=== PATIENT | male | born 1950 | race Hispanic/Latino ===

== ENCOUNTER 2019-11-27 22:44 | Emergency (ER) | payer MEDICARE ==
[2019-11-27] MEDS ORDERED: DIPHtheria,PERTUSSIS(ACELL),TETANUS VACCINE/PF 0.5 ML VIAL IM ONE (23:43)
--- NOTE | 2019-11-27 23:53 | Emergency Department Report ---
<JEANINE GOMEZ - Last Filed: 11/28/19 02:17> ED Fall HPI - General Chief Complaint: Fall Stated Complaint: ETOH/FALL/LACERATION TO HEAD Time Seen by Provider: 11/27/19 23:43 Source: EMS Mode of arrival: Stretcher - History of Present Illness Initial Comments: Patient is a 69-year-old male presents emergency room after a trip and fall that occurred just prior to arrival. Patient states that he hit the back of his head against the concrete. He states he does believe that he passed out for a second. He denies any neck pain, back pain, numbness, weakness, bowel or bladder incontinence, any other injury. He is unsure of his last tetanus immunization. No allergies to medications. - Related Data Allergies Allergy/AdvReac Type Severity Reaction Status Date / Time No Known Allergies Allergy Unverified 11/27/19 23:27 ED Review of Systems Comment: All other systems reviewed and negative ED Past Medical Hx - Past Medical History Previous Medical History?: Yes Hx Seizures: Yes Additional medical history: knee tore up - Surgical History Past Surgical History?: Yes Additional Surgical History: hernia - Social History Smoking Status: Current Every Day Smoker Substance Use Type: None ED Physical Exam - General Limitations: Physical Limitation General appearance: alert, other (appears to be intoxicated) - Head Head exam: Present: other (there are two lacerations present to the posterior scalp, 2 cm each, no active bleeding, no muscle involvement, no foreign body) - Eye Eye exam: Present: normal appearance, PERRL, EOMI. Absent: periorbital swelling, periorbital tenderness Pupils: Present: normal accommodation - ENT ENT exam: Present: mucous membranes moist - Neck Neck exam: Present: normal inspection, full ROM. Absent: tenderness - Respiratory Respiratory exam: Present: normal lung sounds bilaterally. Absent: respiratory distress, wheezes, rales, rhonchi, stridor, chest wall tenderness, accessory muscle use, decreased breath sounds, prolonged expiratory - Cardiovascular Cardiovascular Exam: Present: regular rate, normal rhythm, normal heart sounds. Absent: systolic murmur, diastolic murmur, rubs, gallop - Neurological Exam Neurological exam: Present: alert, oriented X3, CN II-XII intact, normal gait. Absent: motor sensory deficit - Psychiatric Psychiatric exam: Present: normal affect, normal mood - Skin Skin exam: Present: warm, dry - Laceration /Wound Repair Posterior Occipital Wound Location: head (posterior scalp) Wound Length (cm): 2 (two lacerations) Wound's Depth, Shape: superficial Wound Explored: clean Irrigated w/ Saline (ccs): 200 Betadine Prep?: Yes Volume Anesthetic (ccs): 0 Wound Debrided: moderate Number of Sutures: 7 (eagle) Sterile Dressing Applied?: Yes Progress: There are 2 lacerations present, wounds irrigated with saline and thoroughly scrubbed with Betadine, 7 eagle placed with good skin approximation, bleeding controlled, no complications, sterile dressing applied ED Medical Decision Making - Lab Data Result diagrams: 11/28/19 00:21 11/28/19 00:21 Lab Results 11/28/19 11/28/19 11/28/19 Range/Units 00:21 00:21 00:21 WBC 7.1 (4.5-11.0) K/mm3 RBC 5.08 H (3.65-5.03) M/mm3 Hgb 16.5 H (11.8-15.2) gm/dl Hct 47.8 H (35.5-45.6) % MCV 94 (84-94) fl MCH 33 H (28-32) pg MCHC 35 H (32-34) % RDW 14.0 (13.2-15.2) % Plt Count 89 L (140-440) K/mm3 Lymph % (Auto) 45.6 H (13.4-35.0) % Gila % (Auto) 6.7 (0.0-7.3) % Eos % (Auto) 2.6 (0.0-4.3) % Baso % (Auto) 2.1 H (0.0-1.8) % Lymph # 3.2 (1.2-5.4) K/mm3 Gila # 0.5 (0.0-0.8) K/mm3 Eos # 0.2 (0.0-0.4) K/mm3 Baso # 0.2 H (0.0-0.1) K/mm3 Seg Neutrophils % 43.0 (40.0-70.0) % Seg Neutrophils # 3.1 (1.8-7.7) K/mm3 PT 13.5 (12.2-14.9) Sec. INR 1.02 (0.87-1.13) APTT 37.0 H (24.2-36.6) Sec. Sodium 139 (137-145) mmol/L Potassium 4.1 (3.6-5.0) mmol/L Chloride 96.8 L (98-107) mmol/L Carbon Dioxide 26 (22-30) mmol/L Anion Gap 20 mmol/L BUN 14 (9-20) mg/dL Creatinine 1.0 (0.8-1.3) mg/dL Estimated GFR > 60 ml/min BUN/Creatinine Ratio 14 % Glucose 95 (75-100) mg/dL Calcium 9.0 (8.4-10.2) mg/dL Total Bilirubin 0.60 (0.1-1.2) mg/dL AST 50 H (5-40) units/L ALT 23 (7-56) units/L Alkaline Phosphatase 107 (35-129) units/L Total Protein 8.6 H (6.3-8.2) g/dL Albumin 4.7 (3.9-5) g/dL Albumin/Globulin Ratio 1.2 % Plasma/Serum Alcohol (0-0.07) % 08// Range/Units 00:21 WBC (4.5-11.0) K/mm3 RBC (3.65-5.03) M/mm3 Hgb (11.8-15.2) gm/dl Hct (35.5-45.6) % MCV (84-94) fl MCH (28-32) pg MCHC (32-34) % RDW (13.2-15.2) % Plt Count (140-440) K/mm3 Lymph % (Auto) (13.4-35.0) % Gila % (Auto) (0.0-7.3) % Eos % (Auto) (0.0-4.3) % Baso % (Auto) (0.0-1.8) % Lymph # (1.2-5.4) K/mm3 Gila # (0.0-0.8) K/mm3 Eos # (0.0-0.4) K/mm3 Baso # (0.0-0.1) K/mm3 Seg Neutrophils % (40.0-70.0) % Seg Neutrophils # (1.8-7.7) K/mm3 PT (12.2-14.9) Sec. INR (0.87-1.13) APTT (24.2-36.6) Sec. Sodium (137-145) mmol/L Potassium (3.6-5.0) mmol/L Chloride (98-107) mmol/L Carbon Dioxide (22-30) mmol/L Anion Gap mmol/L BUN (9-20) mg/dL Creatinine (0.8-1.3) mg/dL Estimated GFR ml/min BUN/Creatinine Ratio % Glucose (75-100) mg/dL Calcium (8.4-10.2) mg/dL Total Bilirubin (0.1-1.2) mg/dL AST (5-40) units/L ALT (7-56) units/L Alkaline Phosphatase (35-129) units/L Total Protein (6.3-8.2) g/dL Albumin (3.9-5) g/dL Albumin/Globulin Ratio % Plasma/Serum Alcohol 0.33 H (0-0.07) % - Radiology Data Radiology results: report reviewed CT HEAD WITHOUT CONTRAST INDICATION: Status-Post fall, hit head, syncope. E.T.O.H. TECHNIQUE: All CT scans at this location are performed using CT dose reduction for ALARA by means of automated exposure control. COMPARISON: None available. FINDINGS: BRAIN: No hemorrhage or mass effect are seen. No evidence of acute infarction is noted. White matter microvascular changes are seen. Mild ventricular prominence probably is on the basis of central atrophy. ORBITS: Normal as visualized. SOFT TISSUES OF HEAD: Scalp hematoma/edema is seen mildly in the right posterior parietal region. CALVARIUM: Normal. VISUALIZED PARANASAL SINUSES AND MASTOID AIR CELLS: Clear. ADDITIONAL FINDINGS: None. IMPRESSION: No acute intracranial abnormality. CT CERVICAL SPINE WITHOUT CONTRAST INDICATION: Status-Post fall, hit head, syncope. E.T.O.H. TECHNIQUE: All CT scans at this location are performed using CT dose reduction for ALARA by means of automated exposure control. Axial CT images were obtained through the cervical spine. Sagittal and coronal reformatted images were produced. COMPARISON: None available. Cervical spine findings: Moderate degenerative changes are seen with moderate disc space narrowing at C4-5, C5-6, and C6-7. Slight retrolisthesis is noted at C5-6. Anterior and posterior osteophytes are noted at the lower 3 levels and at C7-T1 there is mild posterior osteophyte formation. Osteophytes are more prominent to the right than left posteriorly. Mild disc space narrowing is noted at C3-4. No fractures are seen. Bilateral mild facet arthritic changes are noted. C1 to arthritic changes are moderately prominent. No disc herniation is obvious. A moderate focal area of sclerosis is seen in the C7 vertebral body which is not entirely related to the disc space. Sclerosis and other areas appears more displaced related. Additional findings: Mild chronic changes are seen in the lung apices. IMPRESSION: 1. No acute abnormalities are seen 2. Moderate cervical degenerative changes 3. Sclerosis in the C7 vertebral body. In a male of this age the possibility of prostate carcinoma should be considered and clinical correlation is suggested. Signer Name: John Epperson MD Signed: 11/28/2019 1:12 AM Workstation Name: [id number] Transcribed By: GJ Dictated By: John Epperson MD Electronically Authenticated By: John Epperson MD Signed Date/Time: 11/28/19111 DD/ 1 TD/TT: - Medical Decision Making Patient is a 69-year-old male presents emergency room after a trip and fall that occurred just prior to arrival. Patient states that he hit the back of his head against the concrete. He states he does believe that he passed out for a second. He denies any neck pain, back pain, numbness, weakness, bowel or bladder incontinence, any other injury. He is unsure of his last tetanus immunization. No allergies to medications. vss. on exam: there are two lacerations present to the posterior scalp, 2 cm each, no active bleeding, no muscle involvement, no foreign body, patient appears to be intoxicated. Lacerations repaired per procedure note with eagle. Labs significant for blood alcohol level of 0.33. CT cervical spine: 1. No acute abnormalities are seen 2. Moderate cervical degenerative changes 3. Sclerosis in the C7 vertebral body. In a male of this age the possibility of prostate carcinoma should be considered and clinical correlation is suggested. ct head: No acute intracranial abnormality. Patient will be signed out to Dr. Dunham, CHAR attending pending clinical sobriety ED Disposition Clinical Impression: Intoxication, Abnormal finding on CT scan Head injury Qualifiers: Encounter type: initial encounter Qualified Code(s): S09.90XA - Unspecified injury of head, initial encounter Scalp laceration Qualifiers: Encounter type: initial encounter Qualified Code(s): S01.01XA - Laceration without foreign body of scalp, initial encounter Disposition: DC-01 TO HOME OR SELFCARE Is pt being admited?: No Does the pt Need Aspirin: No Condition: Stable Instructions: Minor Head Injury (ED), Alcohol Intoxication (ED), Staple Care (ED) Additional Instructions: Please keep area clean, dry, covered. May wash with soap and water immediately dry. No hot tub, no pool, no soaking water. [place] need to be removed within 7 days. Follow-up with a primary care doctor. Please stop alcohol use. There is abnormality on the CT scan of your cervical spine which shows a small area of sclerosis which could be a sign of cancer and you need to follow-up with your primary care doctor for this, I have given you your CT report, please take this with you. Return to the emergency room for any new or worsening symptoms. Referrals: EZEQUIEL SIDDIQI MD [Primary Care Provider] - 3-5 Days LEVI THOMAS MD [Staff Physician] - 3-5 Days [facility] [Provider Group] - 3-5 Days [facility] [place] 2[place] [Outside] - 3-5 Days Print Language: TAJIK <BRUNO TARIQ - Last Filed: 11/28/19 11:38> ED Review of Systems ROS: Stated complaint: ETOH/FALL/LACERATION TO HEAD Other details as noted in HPI ED Course Vital Signs 11/27/19 11/28/19 23:28 05:00 Temperature 98.8 F 98.6 F Pulse Rate 81 69 Respiratory 16 16 Rate Blood Pressure 118/72 118/65 [Left] O2 Sat by Pulse 93 100 Oximetry - Reevaluation(s) Reevaluation #1: 11/28/19 11:37 Patient is observed for approximately 13 hours. He is alert and oriented, clinically sober, and walking with a steady gait at this time. He is noted to be eating food without difficulty, he is calm and cooperative, and has not verbalized homicidality or suicidality. ED Medical Decision Making - Lab Data Result diagrams: 11/28/19 00:21 11/28/19 00:21 Critical care attestation.: If time is entered above; I have spent that time in minutes in the direct care of this critically ill patient, excluding procedure time. ED Disposition Is pt being admited?: No Does the pt Need Aspirin: No
[2019-11-28 00:37] LABS: Basophils # (Auto) 0.2 K/mm3 (0.0-0.1); Basophils % (Auto) 2.1 % (0.0-1.8); Eosinophils # (Auto) 0.2 K/mm3 (0.0-0.4); Eosinophils % (Auto) 2.6 % (0.0-4.3); Hematocrit 47.8 % (35.5-45.6); Hemoglobin 16.5 gm/dl (11.8-15.2); Lymphocytes # (Auto) 3.2 K/mm3 (1.2-5.4); Lymphocytes % (Auto) 45.6 % (13.4-35.0); Mean Corpuscular HGB Conc 35 % (32-34); Mean Corpuscular Volume 94 fl (84-94); Monocytes # (Auto) 0.5 K/mm3 (0.0-0.8); Monocytes % (Auto) 6.7 % (0.0-7.3); Red Blood Count 5.08 M/mm3 (3.65-5.03)
[2019-11-28 00:40] LABS: Platelet Count 89 K/mm3 (140-440)
[2019-11-28 00:45] LABS: INR 1.02 (0.87-1.13)
[2019-11-28] MEDS ORDERED: LIDOCAINE (1%) 10 MG/1 ML VIAL 20 ML MDV INFILTRATI ONE (00:45)
[2019-11-28 00:55] LABS: Alanine Aminotransferase 23 units/L (7-56); Albumin 4.7 g/dL (3.9-5); BUN/Creatinine Ratio 14; Blood Urea Nitrogen 14 mg/dL (9-20); Hemolysis Index 14
--- NOTE | 2019-11-28 01:16 | Cat Scan Report ---
CT HEAD WITHOUT CONTRAST INDICATION: Status-Post fall, hit head, syncope. E.T.O.H. TECHNIQUE: All CT scans at this location are performed using CT dose reduction for ALARA by means of automated exposure control. COMPARISON: None available. FINDINGS: BRAIN: No hemorrhage or mass effect are seen. No evidence of acute infarction is noted. White matter microvascular changes are seen. Mild ventricular prominence probably is on the basis of central atrop hy. ORBITS: Normal as visualized. SOFT TISSUES OF HEAD: Scalp hematoma/edema is seen mildly in the right posterior parietal region. CALVARIUM: Normal. VISUALIZED PARANASAL SINUSES AND MASTOID AIR CELLS: Clear. ADDITIONAL FINDINGS: None. IMPRESSION: No acute intracranial abnormality. CT CERVICAL SPINE WITHOUT CONTRAST INDICATION: Status-Post fall, hit head, syncope. E.T.O.H. TECHNIQUE: All CT scans at this location are performed using CT dose reduction for ALARA by means of automated exposure control. Axial CT images were obtained through the cervical spine. Sagittal and co austyn reformatted images were produced. COMPARISON: None available. Cervical spine findings: Moderate degenerative changes are seen with moderate disc space narrowing at C4-5, C5-6, and C6-7. Slight retrolisthesis is noted at C5-6. Anterior and posterior osteophytes are noted at the lower 3 levels and at C7-T1 there is mild posterior osteophyte formation. Osteophytes a re more prominent to the right than left posteriorly. Mild disc space narrowing is noted at C3-4. No fractures are seen. Bilateral mild facet arthritic changes are noted. C1 to arthritic changes are mod erately prominent. No disc herniation is obvious. A moderate focal area of sclerosis is seen in the C7 vertebral body which is not entirely related to the disc space. Sclerosis and other areas appears more displaced related. Additional findings: Mild chronic changes are seen in the lung apices. IMPRESSION: 1. No acute abnormalities are seen 2. Moderate cervical degenerative changes 3. Sclerosis in the C7 vertebral body. In a male of this age the possibility of prostate carcinoma sh ould be considered and clinical correlation is suggested. Signer Name: John Epperson MD Signed: 11/28/2019 1:12 AM Workstation Name: [id number]
[2019-11-28] MEDS ORDERED: SODIUM CHLORIDE 0.9% 1000 ML 1,000 ML IV ONE (01:29)
[2019-11-28 11:52] VITALS: BP 127/72
== END 2019-11-28 11:51 | disposition home or self-care (01) ==
LOC: ED 22:44
DX: S01.01XA Laceration without foreign body of scalp, initial encounter (principal); F17.200 Nicotine dependence, unspecified, uncomplicated; F10.120 Alcohol abuse with intoxication, uncomplicated; X58.XXXA Exposure to other specified factors, initial encounter; Y93.89 Activity, other specified; Y92.89 Other specified places as the place of occurrence of the external cause; Y99.8 Other external cause status
CPT/HCPCS: 12001; 36415; 70450; 72125; 80053; 85025; 85610; 85730; 90471; 90715; 96360; 99284; J7030; 80320; G0480

== ENCOUNTER 2021-12-02 14:53 | Emergency (ER) | payer MEDICARE ==
--- NOTE | 2021-12-02 16:49 | Emergency Department Report ---
ED Psych HPI - General Chief Complaint: Psych Stated Complaint: 1013 Time Seen by Provider: 12/02/21 15:49 Source: patient Mode of arrival: Ambulatory - History of Present Illness Initial Comments: 71-year-old male with history of dementia and Parkinson's disease, but denies a ny psychiatric history presents from [facility] rehab center where he was placed on a 1013 for apparent inappropriate sexual behavior. Patient was found on the ground with another patient with his pants down. Patient states that he was not doing anything inappropriate, and that the other patient was his "friend", and they were about to have sex. Patient denies hallucinations, suicidal ideations, or homicidal ideations. Patient denies previous similar. - Related Data Home Medications Medication Instructions Recorded Confirmed Last Taken Gabapentin [Neurontin] 100 mg PO QHS 12/02/21 12/02/21 Unknown Meclizine [Antivert] 1 tab PO BID PRN 12/02/21 12/02/21 Unknown Meloxicam, Submicronized 15 mg PO DAILY 12/02/21 12/02/21 Unknown [Meloxicam] Memantine HCl 5 mg PO DAILY 12/02/21 12/02/21 Unknown Mvit,Calcium,Iron,Mins/A.acids 1 tab PO DAILY 12/02/21 12/02/21 Unknown [[place] Single Strength Capsule] Sertraline HCl 50 mg PO DAILY 12/02/21 12/02/21 Unknown levETIRAcetam [Keppra TAB] 750 mg PO BID 12/02/21 12/02/21 Unknown risperiDONE [RisperDAL] 0.25 mg PO QHS 12/02/21 12/02/21 Unknown traMADoL [Ultram 50 MG tab] 1 tab PO Q24H PRN 12/02/21 12/02/21 Unknown Allergies Allergy/AdvReac Type Severity Reaction Status Date / Time No Known Allergies Allergy Verified 12/02/21 15:12 ED Review of Systems ROS: Stated complaint: 1013 Other details as noted in HPI Constitutional: denies: chills, fever Eyes: denies: eye pain, eye discharge, vision change ENT: denies: ear pain, throat pain Respiratory: denies: cough, shortness of breath, wheezing Cardiovascular: denies: chest pain, palpitations Endocrine: no symptoms reported Gastrointestinal: denies: abdominal pain, nausea, diarrhea Genitourinary: denies: urgency, dysuria Musculoskeletal: denies: back pain, joint swelling, arthralgia Skin: denies: rash, lesions Neurological: denies: headache, weakness, paresthesias Psychiatric: other (Questionable inappropriate sexual behavior and delusions). denies: anxiety, depression Hematological/Lymphatic: denies: easy bleeding, easy bruising ED Past Medical Hx - Past Medical History Previous Medical History?: Yes Hx Seizures: Yes Hx Psychiatric Treatment: Yes (MDD, Parkinsons, Dementia) Additional medical history: knee tore up - Surgical History Additional Surgical History: hernia - Social History Smoking Status: Current Every Day Smoker Substance Use Type: Alcohol - Medications Home Medications: Home Medications Medication Instructions Recorded Confirmed Last Taken Type Gabapentin [Neurontin] 100 mg PO QHS 12/02/21 12/02/21 Unknown History Meclizine [Antivert] 1 tab PO BID PRN 12/02/21 12/02/21 Unknown History Meloxicam, Submicronized 15 mg PO DAILY 12/02/21 12/02/21 Unknown History [Meloxicam] Memantine HCl 5 mg PO DAILY 12/02/21 12/02/21 Unknown History Mvit,Calcium,Iron,Mins/A.acids 1 tab PO DAILY 12/02/21 12/02/21 Unknown History [[place] Single Strength Capsule] Sertraline HCl 50 mg PO DAILY 12/02/21 12/02/21 Unknown History levETIRAcetam [Keppra TAB] 750 mg PO BID 12/02/21 12/02/21 Unknown History risperiDONE [RisperDAL] 0.25 mg PO QHS 12/02/21 12/02/21 Unknown History traMADoL [Ultram 50 MG tab] 1 tab PO Q24H PRN 12/02/21 12/02/21 Unknown History ED Physical Exam - General Limitations: Other (History of dementia) General appearance: alert, in no apparent distress - Head Head exam: Present: atraumatic, normocephalic - Eye Eye exam: Present: normal appearance - ENT ENT exam: Present: mucous membranes moist - Neck Neck exam: Present: normal inspection - Respiratory Respiratory exam: Present: normal lung sounds bilaterally. Absent: respiratory distress - Cardiovascular Cardiovascular Exam: Present: regular rate, normal rhythm. Absent: systolic murmur, diastolic murmur, rubs, gallop - GI/Abdominal GI/Abdominal exam: Present: soft, normal bowel sounds - Rectal Rectal exam: Present: deferred - Extremities Exam Extremities exam: Present: normal inspection - Back Exam Back exam: Present: normal inspection - Neurological Exam Neurological exam: Present: alert, oriented X3, CN II-XII intact, normal gait - Psychiatric Psychiatric exam: Present: normal affect, normal mood. Absent: depressed, anxious, flat affect, suicidal ideation - Skin Skin exam: Present: warm, dry, intact, normal color. Absent: rash ED Course Vital Signs 12/02/21 12/02/21 12/02/21 15:06 16:01 17:26 Temperature 98.2 F 98.3 F Pulse Rate 82 62 Respiratory 16 20 Rate Blood Pressure 168/82 163/70 [Left] O2 Sat by Pulse 94 94 Oximetry - Reevaluation(s) Reevaluation #1: 12/02/21 19:31 Patient is medically cleared to be evaluated by mental health or to be admitted to geriatric psychiatry. ED Medical Decision Making - Lab Data Result diagrams: 12/02/21 16:44 12/02/21 16:44 - Differential Diagnosis Delusions, inappropriate sexual behavior, unfounded complaints Critical care attestation.: If time is entered above; I have spent that time in minutes in the direct care of this critically ill patient, excluding procedure time. ED Disposition Clinical Impression: Inappropriate sexual behavior Dementia Qualifiers: Dementia type: unspecified type Dementia behavioral disturbance: with behavioral disturbance Qualified Code(s): F03.91 - Unspecified dementia with behavioral disturbance Disposition: 30 STILL A PATIENT Is pt being admited?: No Condition: Stable
[2021-12-02 17:00] LABS: Basophils # (Auto) 0.2 K/mm3 (0.0-0.1); Basophils % (Auto) 2.3 % (0.0-1.8); Eosinophils # (Auto) 0.4 K/mm3 (0.0-0.4); Eosinophils % (Auto) 4.8 % (0.0-4.3); Hematocrit 42.7 % (35.5-45.6); Hemoglobin 14.9 gm/dl (11.8-15.2); Lymphocytes # (Auto) 2.2 K/mm3 (1.2-5.4); Lymphocytes % (Auto) 26.7 % (13.4-35.0); Mean Corpuscular HGB Conc 35 % (32-34); Mean Corpuscular Volume 93 fl (84-94); Monocytes # (Auto) 0.9 K/mm3 (0.0-0.8); Monocytes % (Auto) 11.5 % (0.0-7.3); Platelet Count 192 K/mm3 (140-440); Red Blood Count 4.58 M/mm3 (3.65-5.03)
[2021-12-02 17:25] LABS: BUN/Creatinine Ratio 12; Blood Urea Nitrogen 14 mg/dL (9-20); Calcium 9.3 mg/dL (8.4-10.2); Hemolysis Index 6
[2021-12-02 17:27] LABS: Amphetamine Screen,Urine Negative; Benzodiazepines Screen,Urine Negative; Cannabinoid Screen,Urine Negative; Cocaine Screen,Urine Negative; Methadone Screen,Urine Negative; Opiate Screen,Urine Negative
[2021-12-02 17:41] LABS: Mucus,Urine FEW /HPF; RBC,Urine < 1.0 /HPF (0.0-6.0)
[2021-12-02 17:43] LABS: Bilirubin,Urine Negative (Negative); Blood,Urine Negative (Negative); Color,Urine Straw (Yellow); PH,Urine 5.5 (5.0-7.0); Protein,Urine >500 mg/dL (Negative); Urobilinogen,Urine < 2.0 mg/dL (<2.0)
--- NOTE | 2021-12-03 11:20 | Consultation ---
History of Present Illness - Reason for Consult Consult date: 12/03/21 Reason for consult: inappropriate sexual behavior - History of Present Psychiatric Illness The patient was seen today. He was brought in from [facility] for inappropriate behavior. During my evaluation the patient is calm, cooperative and polite. He says he has a girlfriend who is also a resident at the facility. The patient says they were about to have consensual sex. He is a/o x 3. He denies SI/HI or any attempts in the past. The patient also denies hallucinations of any kind. The nursing staff says the patient has been calm, cooperative and has not exhibited any inappropriate behavior. The patient does not meet criteria for inpatient psych treatment. He may return back to the detention if medically clear. PAST PSYCHIATRIC HISTORY: Diagnoses: Denies Suicide attempts or Self-harm behavior: Denies Prior psychiatric hospitalizations: Denies Substance Abuse history: Nicotine Previous psychiatric medications tried: Denies Outpatient treatment: no PAST MEDICAL HISTORY: None reported Family Psychiatric History: None reported or documented SOCIAL HISTORY Marital Status: Living Arrangements: retirement Employment Status: Retired Access to guns/weapons: Denies Education: History of Abuse: Denies Legal History: Denies REVIEW OF SYSTEMS Constitutional: Negative for weight loss ENT: Negative for stridor Respiratory: Negative for cough or hemoptysis All other systems reviewed and are negative MENTAL STATUS General Appearance and Behavior: age appropriate, good eye contact, cooperative, calm, pleasant Cooperation: Cooperative Psychomotor Behavior: within normal limits Mood: Calm Affect and affective range: Congruent with stated mood Thought Process: goal oriented Thought Content: reality oriented Speech: Normal volume and Regular rate and rhythm Suicidal Ideation: Denies Homicidal Ideation: Denies HI Hallucinations: Denies Delusions: None elicited Impulse Control: Good Insight and Judgment: Good Memory: Good Attention: Attentive Orientation: alert and oriented Diagnoses: Encounter for Mental Health Eval Treatment Plan d/c 1013 Case management consult if the patient is unable to return to the detention Medical: per primary Disposition: Do not recommend acute psychiatric treatment Will sign off. Thanks Case staffed with Dr. Young Medications and Allergies Allergies Allergy/AdvReac Type Severity Reaction Status Date / Time No Known Allergies Allergy Verified 12/02/21 15:12 Home Medications Medication Instructions Recorded Confirmed Last Taken Type Gabapentin [Neurontin] 100 mg PO QHS 12/02/21 12/02/21 Unknown History Meclizine [Antivert] 1 tab PO BID PRN 12/02/21 12/02/21 Unknown History Meloxicam, Submicronized 15 mg PO DAILY 12/02/21 12/02/21 Unknown History [Meloxicam] Memantine HCl 5 mg PO DAILY 12/02/21 12/02/21 Unknown History Mvit,Calcium,Iron,Mins/A.acids 1 tab PO DAILY 12/02/21 12/02/21 Unknown History [[facility]-[place] Single Strength Capsule] Sertraline HCl 50 mg PO DAILY 12/02/21 12/02/21 Unknown History levETIRAcetam [Keppra TAB] 750 mg PO BID 12/02/21 12/02/21 Unknown History risperiDONE [RisperDAL] 0.25 mg PO QHS 12/02/21 12/02/21 Unknown History traMADoL [Ultram 50 MG tab] 1 tab PO Q24H PRN 12/02/21 12/02/21 Unknown History Mental Status Exam - Vital signs Last Vital Signs Temp 97.5 F L 12/03/21 08:47 Pulse 65 12/03/21 08:47 Resp 18 12/03/21 08:47 BP 154/76 12/03/21 08:47 Pulse Ox 96 12/03/21 09:17 Results Result Diagrams: 12/02/21 16:44 12/02/21 16:44 Abnormal lab results 12/02/21 12/02/21 12/02/21 Range/Units 16:44 16:44 16:44 MCHC 35 H (32-34) % RDW 13.0 L (13.2-15.2) % [place] % (Auto) 11.5 H (0.0-7.3) % Eos % (Auto) 4.8 H (0.0-4.3) % Baso % (Auto) 2.3 H (0.0-1.8) % Maury # (Auto) 0.9 H (0.0-0.8) K/mm3 Baso # (Auto) 0.2 H (0.0-0.1) K/mm3 Salicylates < 0.3 L (2.8-20.0) mg/dL Acetaminophen 5.0 L (10.0-30.0) ug/mL All other labs normal.
--- NOTE | 2021-12-03 17:49 | Event Note ---
Date: 12/03/21 The patient was evaluated in the emergency department for symptoms described in the history of present illness. He/she was evaluated in the context of the global COVID-19 pandemic, which necessitated consideration that the patient might be at risk for infection with the virus that causes COVID-19. Institutional protocols and algorithms that pertain to the evaluation of patients at risk for COVID-19 are in a state of rapid change based on information released by regulatory bodies including the CDC and federal and state organizations. These policies and algorithms were followed during the patient's care in the emergency department. Please note that these policies, procedures and recommendations changed on a rapid basis. Laboratory studies, vital signs, nursing documentation, ER documentation, and psychiatric documentation are reviewed and appreciated. Nursing team reports no acute events this morning or concerns. The patient is awake and not in any acute distress The patient was deemed medically suitable for psychiatric disposition and placement during his initial ER evaluation. The patient continues to remain medically suitable for psychiatric placement and disposition. He is currently pending psychiatric placement. The psychiatric team have advised that this patient does not meet criteria for 1013 hold or involuntary confinement. They have recommended discharge from a psychiatric perspective Vital Signs 12/02/21 12/02/21 12/02/21 15:06 16:01 17:26 Temperature 98.2 F 98.3 F Pulse Rate 82 62 Respiratory 16 20 Rate Blood Pressure 168/82 163/70 [Left] O2 Sat by Pulse 94 94 Oximetry 12/02/21 12/03/21 12/03/21 23:00 08:47 09:17 Temperature 97.5 F L Pulse Rate 65 Respiratory 18 Rate Blood Pressure 154/76 [Left] O2 Sat by Pulse 100 96 96 Oximetry 12/03/21 17:08 Temperature 98.6 F Pulse Rate 63 Respiratory 20 Rate Blood Pressure 156/64 [Left] O2 Sat by Pulse 97 Oximetry Lab Results 12/02/21 12/02/21 12/02/21 Range/Units 16:44 16:44 16:44 WBC (4.5-11.0) K/mm3 RBC (3.65-5.03) M/mm3 Hgb (11.8-15.2) gm/dl Hct (35.5-45.6) % MCV (84-94) fl MCH (28-32) pg MCHC (32-34) % RDW (13.2-15.2) % Plt Count (140-440) K/mm3 Lymph % (Auto) (13.4-35.0) % [place] % (Auto) (0.0-7.3) % Eos % (Auto) (0.0-4.3) % Baso % (Auto) (0.0-1.8) % Lymph # (Auto) (1.2-5.4) K/mm3 [place] # (Auto) (0.0-0.8) K/mm3 Eos # (Auto) (0.0-0.4) K/mm3 Baso # (Auto) (0.0-0.1) K/mm3 Seg Neutrophils % (40.0-70.0) % Seg Neutrophils # (1.8-7.7) K/mm3 Sodium 141 (137-145) mmol/L Potassium 4.6 (3.6-5.0) mmol/L Chloride 102.7 (98-107) mmol/L Carbon Dioxide 30 (22-30) mmol/L Anion Gap 13 mmol/L BUN 14 (9-20) mg/dL Creatinine 1.2 (0.8-1.3) mg/dL Estimated GFR > 60 ml/min BUN/Creatinine Ratio 12 % Glucose 91 (75-100) mg/dL Calcium 9.3 (8.4-10.2) mg/dL Urine Color (Yellow) Urine Turbidity (Clear) Urine pH (5.0-7.0) Ur Specific [place] (1.003-1.030) Urine Protein (Negative) mg/dL Urine Glucose (UA) (Negative) mg/dL Urine Ketones (Negative) mg/dL Urine Blood (Negative) Urine Nitrite (Negative) Ur Reducing Substances Urine Bilirubin (Negative) Urine Ictotest Urine Urobilinogen (<2.0) mg/dL Ur Leukocyte Esterase (Negative) Urine WBC (Auto) (0.0-6.0) /HPF Urine RBC (Auto) (0.0-6.0) /HPF Urine Mucus /HPF Salicylates < 0.3 L (2.8-20.0) mg/dL Urine Opiates Screen Urine Methadone Screen Acetaminophen 5.0 L (10.0-30.0) ug/mL Ur Barbiturates Screen Ur Phencyclidine Scrn Ur Amphetamines Screen U Benzodiazepines Scrn Urine Cocaine Screen U Marijuana (THC) Screen Drugs of Abuse Note Plasma/Serum Alcohol (0-0.07) % SARS-CoV-2 (PCR) (Negative) 12/02/21 12/02/21 12/02/21 Range/Units 16:44 16:44 16:48 WBC 8.1 (4.5-11.0) K/mm3 RBC 4.58 (3.65-5.03) M/mm3 Hgb 14.9 (11.8-15.2) gm/dl Hct 42.7 (35.5-45.6) % MCV 93 (84-94) fl MCH 32 (28-32) pg MCHC 35 H (32-34) % RDW 13.0 L (13.2-15.2) % Plt Count 192 (140-440) K/mm3 Lymph % (Auto) 26.7 (13.4-35.0) % [place] % (Auto) 11.5 H (0.0-7.3) % Eos % (Auto) 4.8 H (0.0-4.3) % Baso % (Auto) 2.3 H (0.0-1.8) % Lymph # (Auto) 2.2 (1.2-5.4) K/mm3 [place] # (Auto) 0.9 H (0.0-0.8) K/mm3 Eos # (Auto) 0.4 (0.0-0.4) K/mm3 Baso # (Auto) 0.2 H (0.0-0.1) K/mm3 Seg Neutrophils % 54.7 (40.0-70.0) % Seg Neutrophils # 4.4 (1.8-7.7) K/mm3 Sodium (137-145) mmol/L Potassium (3.6-5.0) mmol/L Chloride (98-107) mmol/L Carbon Dioxide (22-30) mmol/L Anion Gap mmol/L BUN (9-20) mg/dL Creatinine (0.8-1.3) mg/dL Estimated GFR ml/min BUN/Creatinine Ratio % Glucose (75-100) mg/dL Calcium (8.4-10.2) mg/dL Urine Color Straw (Yellow) Urine Turbidity Slightly cloudy (Clear) Urine pH 5.5 (5.0-7.0) Ur Specific [place] 1.010 (1.003-1.030) Urine Protein >500 (Negative) mg/dL Urine Glucose (UA) Negative (Negative) mg/dL Urine Ketones Negative (Negative) mg/dL Urine Blood Negative (Negative) Urine Nitrite Negative (Negative) Ur Reducing Substances Not Reportable Urine Bilirubin Negative (Negative) Urine Ictotest Not Reportable Urine Urobilinogen < 2.0 (<2.0) mg/dL Ur Leukocyte Esterase Negative (Negative) Urine WBC (Auto) 1.0 (0.0-6.0) /HPF Urine RBC (Auto) < 1.0 (0.0-6.0) /HPF Urine Mucus Few /HPF Salicylates (2.8-20.0) mg/dL Urine Opiates Screen Urine Methadone Screen Acetaminophen (10.0-30.0) ug/mL Ur Barbiturates Screen Ur Phencyclidine Scrn Ur Amphetamines Screen U Benzodiazepines Scrn Urine Cocaine Screen U Marijuana (THC) Screen Drugs of Abuse Note Plasma/Serum Alcohol < 0.01 (0-0.07) % SARS-CoV-2 (PCR) (Negative) 12/02/21 12/03/21 Range/Units 16:48 07:53 WBC (4.5-11.0) K/mm3 RBC (3.65-5.03) M/mm3 Hgb (11.8-15.2) gm/dl Hct (35.5-45.6) % MCV (84-94) fl MCH (28-32) pg MCHC (32-34) % RDW (13.2-15.2) % Plt Count (140-440) K/mm3 Lymph % (Auto) (13.4-35.0) % [place] % (Auto) (0.0-7.3) % Eos % (Auto) (0.0-4.3) % Baso % (Auto) (0.0-1.8) % Lymph # (Auto) (1.2-5.4) K/mm3 [place] # (Auto) (0.0-0.8) K/mm3 Eos # (Auto) (0.0-0.4) K/mm3 Baso # (Auto) (0.0-0.1) K/mm3 Seg Neutrophils % (40.0-70.0) % Seg Neutrophils # (1.8-7.7) K/mm3 Sodium (137-145) mmol/L Potassium (3.6-5.0) mmol/L Chloride (98-107) mmol/L Carbon Dioxide (22-30) mmol/L Anion Gap mmol/L BUN (9-20) mg/dL Creatinine (0.8-1.3) mg/dL Estimated GFR ml/min BUN/Creatinine Ratio % Glucose (75-100) mg/dL Calcium (8.4-10.2) mg/dL Urine Color (Yellow) Urine Turbidity (Clear) Urine pH (5.0-7.0) Ur Specific [place] (1.003-1.030) Urine Protein (Negative) mg/dL Urine Glucose (UA) (Negative) mg/dL Urine Ketones (Negative) mg/dL Urine Blood (Negative) Urine Nitrite (Negative) Ur Reducing Substances Urine Bilirubin (Negative) Urine Ictotest Urine Urobilinogen (<2.0) mg/dL Ur Leukocyte Esterase (Negative) Urine WBC (Auto) (0.0-6.0) /HPF Urine RBC (Auto) (0.0-6.0) /HPF Urine Mucus /HPF Salicylates (2.8-20.0) mg/dL Urine Opiates Screen Negative Urine Methadone Screen Negative Acetaminophen (10.0-30.0) ug/mL Ur Barbiturates Screen Negative Ur Phencyclidine Scrn Negative Ur Amphetamines Screen Negative U Benzodiazepines Scrn Negative Urine Cocaine Screen Negative U Marijuana (THC) Screen Negative Drugs of Abuse Note Disclamer Plasma/Serum Alcohol (0-0.07) % SARS-CoV-2 (PCR) Negative (Negative)
[2021-12-03 20:51] VITALS: BP 130/85
== END 2021-12-03 20:51 ==
LOC: ED 14:53
DX: F03.90 Unspecified dementia, unspecified severity, without behavioral disturbance, psychotic disturbance, mood disturbance, and anxiety (principal); R56.9 Unspecified convulsions; Z20.822 Contact with and (suspected) exposure to COVID-19
CPT/HCPCS: 36415; 80048; 80307; 81001; 85025; 99285; U0003; 80320; G0480